=== PATIENT | male | born 1990 | race Caucasian/White ===

== ENCOUNTER 2016-08-28 19:42 | Emergency (ER) | payer BC ==
[~2016-08-28] VITALS: Ht 180.3 cm; Wt 88.0 kg
[2016-08-28 19:43] VITALS: TEMP 36.1; Ht 180.3 cm; Wt 88.0 kg
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
[2016-08-28 21:32] VITALS: BP 152/89; PULSE 107; O2SAT 98
== END 2016-08-28 21:47 | disposition home or self-care (01) ==
LOC: C.EDD 19:44
DX: S50.812A Abrasion of left forearm, initial encounter (principal); S80.812A Abrasion, left lower leg, initial encounter; S90.512A Abrasion, left ankle, initial encounter; S20.319A Abrasion of unspecified front wall of thorax, initial encounter; V28.4XXA Motorcycle driver injured in noncollision transport accident in traffic accident, initial encounter; Y92.488 Other paved roadways as the place of occurrence of the external cause